=== PATIENT | male | born 1990 | race Caucasian/White ===

== ENCOUNTER 2017-08-08 11:55 | Emergency (ER) | payer MEDICAID ==
[2017-08-08 12:02] VITALS: RESP 16
[2017-08-08] MEDS ORDERED: LET GEL TOPICAL 1 EA SYR TP ONE (12:03)
[2017-08-08] MEDS ORDERED: SKIN ADHESIVE (DERMABOND) 1 EACH TP ONE (12:37)
--- NOTE | 2017-08-08 12:49 | EDPHY ---
H & P Time Seen by Provider: 08/08/17 11:58 HPI/ROS: 26 yo M presents c/o hit his head on the corner of a cabinet, sustaining a small scalp laceration. No loc. No n,v. Unsure of tetanus status. Review of systems As per HPI General no fever no chills no weakness HEENT no eye pain no eye discharge. No eye redness, no sore throat Respiratory no cough, no shortness of breath Cardiac no chest pain, no peripheral edema GI no abdominal pain, no diarrhea, no constipation, no nausea, no vomiting no flank pain, no hematuria, no dysuria Musculoskeletal no myalgias, no joint pain Heme no easy bruising, no easy bleeding Endo no polyuria, no polydipsia Skin no rashes, no pruritus Neuro no syncope, no dizziness, no headaches Psych is no suicidal ideation, no homicidal ideation Past Medical/Surgical History: Non contributory Social History: No excessive alcohol or drug use Smoking Status: Never smoked Physical Exam: 26-year-old male alert and oriented no acute distress nontoxic appearance, afebrile Normocephalic Scalp left frontal with a very small V-shaped laceration non gaping, approximately 1 cm Extraocular muscles intact Pupils round reactive Neck supple nontender No respiratory distress Neuro alert and oriented, no focal deficits, gait intact Constitutional: Initial Vital Signs Temperature (C) 36.4 C 08/08/17 12:00 Heart Rate 61 08/08/17 12:00 Respiratory Rate 16 08/08/17 12:00 Blood Pressure 136/84 H 08/08/17 12:00 O2 Sat (%) 99 08/08/17 12:00 O2 Delivery Mode Room Air Allergies/Adverse Reactions: No Known Allergies Allergy (Verified 08/08/17 12:01) Home Medications: Medication Instructions Recorded Vitamin B12 08/08/17 Medical Decision Making Procedures: Procedure note-laceration The wound was irrigated with copious amounts of saline. Lidocaine 1% was used for local anesthetic. Skin adhesive, Dermabond, used for closure Patient tolerated procedure well. ED Course/Re-evaluation: Patient seen and evaluated for scalp laceration Impression/plan Scalp laceration, non gaping, used Dermabond for closure Patient is scheduled to have MRI tomorrow of shoulder Differential Diagnosis: Scalp laceration, head injury, concussion - Data Points Medications Given: Discontinued Medications Diphtheria/Tetanus/Acell Pertussis (Boostrix) 0.5 ml IM .ONCE ONE Stop: 08/08/17 13:05 Last Admin: 08/08/17 13:07 Dose: 0.5 ml Tetracaine/Epinephrine/Lidocaine (Let Gel Topical) 1 ea TP EDNOW ONE Stop: 08/08/17 12:04 Last Admin: 08/08/17 12:05 Dose: 1 ea Departure - Departure Disposition: Home, Routine, Self-Care Clinical Impression: Scalp laceration Condition: Good Instructions: Laceration (ED), Skin Adhesive Care (ED) Referrals: NONE *PRIMARY CARE P,. [Primary Care Provider] - As per Instructions
[2017-08-08 13:03] VITALS: BP 126/79; PULSE 59; TEMP 97.7; O2SAT 97
[2017-08-08] MEDS ORDERED: TDAP ADULT 0.5 ML INJ (BOOSTRIX) IM ONE (13:04)
== END 2017-08-08 13:11 | disposition home or self-care (01) ==
LOC: CED 11:55
PROC: 0HQ0XZZ Repair Scalp Skin, External Approach (ICD-10-PCS; principal; 2017-08-08)
DX: S01.01XA Laceration without foreign body of scalp, initial encounter (principal); Z23 Encounter for immunization; W22.8XXA Striking against or struck by other objects, initial encounter

== ENCOUNTER → 2017-08-09 | Outpatient (CLI) | payer MEDICAID | LOC: FIMAGING 10:53 | PROVIDERS: ATTEND Nurse Practitioner Adult Health | DX: M25.512 Pain in left shoulder (principal); S43.492S Other sprain of left shoulder joint, sequela; Z87.828 Personal history of other (healed) physical injury and trauma ==